=== PATIENT | female | born 1945 | race Caucasian/White ===

== ENCOUNTER → 2019-06-22 | Outpatient (CLI) | payer MEDICARE, OTHER ==
[~2019-06-22] MED LIST: IOPAMIDOL 370 MG/ML 200 ML INFUS..BTL INJ ONE; SODIUM CHLORIDE 0.9% 250ML 250 ML ONE; SODIUM CHLORIDE 0.9% 500ML 500 ML ONE; SODIUM CHLORIDE 0.9% 50ML 50 ML ONE
[2019-06-22 11:56] LABS: CREATININE, SERUM 1.31 mg/dL (0.57-1.11)
--- NOTE | 2019-06-22 15:13 | Diagnostic Imaging Report ---
EXAM: CT Chest, Abdomen and Pelvis WITH intravenous contrast INDICATION: COMPARISON: None. TECHNIQUE: The chest, abdomen and pelvis were scanned utilizing a multidetector helical scanner from the thoracic inlet to the pubic symphysis following administration of IV contrast. Coronal and sagittal reformations were obtained. IV CONTRAST: 100cc Isovue 370 ORAL CONTRAST: Water COMPLICATIONS: None RADIATION DOSE: Total DLP: 1087.9 mGy*cm Dose modulation, iterative reconstruction, and/or weight based adjustment of the mA/kV was utilized to reduce the radiation dose to as low as reasonably achievable. FINDINGS: LINES/ TUBES: None. LUNGS AND AIRWAYS: The central airways are patent. No focal consolidation or pulmonary edema. Scattered tree-in-bud nodules at the dependent right and left lower lobes. Scattered bilateral pulmonary nodules measure up to 6 mm, for example at the right lung apex (series 2 image 16). PLEURA: No pleural effusion. No pneumothorax. HEART AND MEDIASTINUM: Heterogeneous multinodular left thyroid gland. The largest nodule measures up to 3.5 cm at the lower pole. No supraclavicular, mediastinal, or hilar lymphadenopathy. The heart is not enlarged. No pericardial effusion. Scattered atherosclerotic calcifications involve the coronary arteries, thoracic aorta, and proximal great vessels. HEPATOBILIARY: Mild diffuse hepatic steatosis. No focal liver lesions. No biliary ductal dilation. Status post cholecystectomy. SPLEEN: No splenomegaly. PANCREAS: No focal masses or ductal dilatation. ADRENALS: No adrenal nodules. KIDNEYS/URETERS: No hydronephrosis, stones, or solid mass lesions. PELVIC ORGANS/BLADDER: Status post hysterectomy. PERITONEUM / RETROPERITONEUM: No free air or fluid. LYMPH NODES: No lymphadenopathy. VESSELS: Scattered atherosclerotic calcifications of the nonaneurysmal abdominal aorta and major branches. GI TRACT: Moderate sliding hiatal hernia with approximately half of the stomach above the diaphragm. Severe sigmoid diverticulosis. No CT evidence of diverticulitis. No abnormal bowel wall thickening. No bowel obstruction. BONES AND SOFT TISSUES: No acute osseous injury. No suspicious lytic or blastic lesions. Multilevel degenerative changes of the visualized spine. IMPRESSION: Scattered bilateral pulmonary nodules measuring up to 6mm. In this patient with history of malignancy, recommend continued imaging follow-up as per clinical protocol. Scattered bilateral lower lobe dependent tree in bud nodules may reflect a component of aspiration. No focal pneumonia. Heterogeneous multinodular left thyroid gland with the largest nodule measuring up to 3.5cm. Recommend dedicated thyroid ultrasound for further evaluation. Diffuse hepatic steatosis. Scattered atherosclerotic vascular calcifications, including of the coronary arteries. Severe sigmoid diverticulosis without CT evidence of diverticulitis. Moderate sliding hiatal hernia. Signed by: Roro Pemberton MD on 06/22/2019 3:10 PM
--- NOTE | 2019-06-22 19:36 | Diagnostic Imaging Report ---
Bone Scan, delayed phase INDICATION: 73F with history of breast cancer diagnosed in 2016. COMPARISON: CT [facility] 06/22/2019 REPORT: Approximately 3 hours following intravenous administration of 25 mCi of Tc-99m MDP, delayed total body images in the anterior and posterior projections and selected spot images were obtained. Round foci of increased tracer in the right 2nd-4th ribs anteriorly, consistent with posttraumatic change. Degenerative changes in L2-L4 on the right. Otherwise, distribution of tracer activity is unremarkable throughout the skeletal system. No abnormal accumulation of tracer is seen in the soft tissues or urinary tract. IMPRESSION: No scan evidence of metastatic bone disease. Signed by: Dr. Ashtyn Zeng M.D. on 06/22/2019 7:33 PM
== END ==
LOC: NM 10:56
PROVIDERS: ATTEND Internal Medicine Hematology & Oncology
DX: C50.412 Malignant neoplasm of upper-outer quadrant of left female breast (principal)
CPT/HCPCS: 36415; 71260; 74177; 78306; 82565; 82948; 84520; 96360; A9503; J7040; J7050; Q9967

== ENCOUNTER → 2019-07-19 | Outpatient (CLI) | payer MEDICARE, OTHER ==
--- NOTE | 2019-07-19 14:35 | Diagnostic Imaging Report ---
EXAM: US THYROID DATE: 07/19/2019 1:48 PM INDICATION: Thyroid nodule COMPARISON: CT from 06/22/2019 FINDINGS: The right thyroid lobe measures 4.0 x 1.9 x 1.8 cm. The assessment measures 2 mm in thickness. The left thyroid lobe measures 5.5 x 2.7 x 2.8 cm. The thyroid parenchyma is heterogeneous. There is a 1.0 x 0.9 x 0.9 cm isoechoic solid nodule identified within the superior pole the right thyroid lobe. There is a heterogeneous solid nodule identified within the mid right thyroid lobe measuring approximately 3.1 x 2.4 x 2.8 cm. Thyroid vascularity is within normal limits. IMPRESSION: Heterogeneous multinodular thyroid as detailed above. The dominant nodule within left thyroid lobe meets criteria for fine needle aspiration based on size. Signed by: Dr. Ashkan Singh MD on 07/19/2019 2:32 PM
== END ==
LOC: US 13:40
PROVIDERS: ATTEND Internal Medicine Hematology & Oncology
DX: E04.1 Nontoxic single thyroid nodule (principal)
CPT/HCPCS: 76536

== ENCOUNTER 2022-09-21 17:35 | Inpatient (IN) | payer MEDICARE, OTHER ==
[~2022-09-21] VITALS: Ht 177.8 cm; Wt 90.5 kg
[~2022-09-21 17:35] MED LIST changes: +BREO ELLIPTA 21 EACH INH; +CEPHALEXIN500 MG PO; +CLOPIDOGREL75 MG PO; +ESCITALOPRAM OX20 MG PO; +GLYBURIDE MICRON3 MG PO; -IOPAMIDOL 370 MG/ML 200 ML INFUS..BTL INJ ONE; +KEFLEX125 MG/5 M PO; +LOSARTAN POTAS100 MG PO; +METOPROLOL TART50 MG PO; +PANTOPRAZOLE SO40 MG PO; +ROSUVASTATIN CAL5 MG PO; -SODIUM CHLORIDE 0.9% 250ML 250 ML ONE; -SODIUM CHLORIDE 0.9% 500ML 500 ML ONE; -SODIUM CHLORIDE 0.9% 50ML 50 ML ONE
[2022-09-21 18:30] LABS: BASOPHILS % 0.3 % (0.0-1.0); EOSINOPHILS # (AUTO) 0.1 (0.0-0.4); EOSINOPHILS % 0.9 % (0.0-6.0); HEMATOCRIT 41.8 % (34.2-44.1); HEMOGLOBIN 13.8 g/dL (12.0-16.0); LYMPHOCYTES # (AUTO) 1.6 (1.0-3.2); LYMPHOCYTES % 11.1 % (18.0-39.1); MEAN CORPUSCULAR HEMOGLOBIN 30.5 pg (28-32); MEAN CORPUSCULAR VOLUME 92.5 fL (81-99); MONOCYTES # (AUTO) 0.8 (0.2-0.8); MONOCYTES % 5.5 % (4.4-11.3); NEUTROPHILS # (AUTO) 11.7 (2.1-6.9); NEUTROPHILS % 81.3 % (38.7-80.0); PLATELET COUNT 295 x10e3/uL (140-360); RED BLOOD COUNT 4.52 x10e6/uL (3.6-5.1); RED CELL DISTRIBUTION WIDTH 13.5 % (11.7-14.4)
[2022-09-21] MEDS ORDERED: SODIUM CHLORIDE 0.9% 1000ML 1,000 ML IV SCH (18:30)
[2022-09-21 18:33] LABS: INR 0.95; PROTHROMBIN TIME 12.9 seconds (11.9-14.5)
[2022-09-21 18:34] LABS: PARTIAL THROMBOPLASTIN TIME 25.4 seconds (23.8-35.5)
[2022-09-21 18:42] LABS: ALBUMIN 3.4 g/dL (3.5-5.0); ALBUMIN/GLOBULIN RATIO 0.9 (0.8-2.0); ANION GAP 17.6 mmol/L (8-16); CALCIUM 9.3 mg/dL (8.4-10.2); CREATININE, SERUM 0.85 mg/dL (0.57-1.11); POTASSIUM 3.6 mmol/L (3.5-5.1)
[2022-09-21 18:47] LABS: CLARITY,URINE SL CLOUDY (CLEAR); COLOR,URINE YELLOW (YELLOW); KETONES,URINE >=160 (NEGATIVE); LEUKOCYTE ESTERASE ,URINE SMALL (NEGATIVE); NITRITE,URINE NEGATIVE (NEGATIVE); PROTEIN,URINE DIPSTICK 1+ (NEGATIVE)
[2022-09-21 18:48] LABS: URINE UROBILINOGEN >=8 mg/dL (0.2 - 1)
[2022-09-21 18:52] LABS: B-TYPE NATRIURETIC PEPTIDE2 80.2 pg/mL (0-100)
[2022-09-21 18:57] LABS: WBC,URINE (MAN) 21-50 /HPF (0-5)
[2022-09-21 18:58] LABS: BACTERIA,URINE MODERATE /HPF; EPITHELIAL CELLS,URINE MANY /LPF
[2022-09-21] MEDS ORDERED: IOPAMIDOL 370 MG/ML 100 ML INFUS..BTL INJ ONE (19:05)
[2022-09-21] MEDS ORDERED: AMIODARONE HCL 150 MG/100 ML BAG IV ONE (22:30)
[2022-09-21] MEDS ORDERED: AMIODARONE HCL 100 ML IV ONE (22:43)
[2022-09-21] MEDS: AMIODARONE HCL 200 MG TAB PO SCH (22:47)
[2022-09-21] MEDS ORDERED: DEXTROSE 50% SYRINGE 50 ML IV PRN (23:00)
[2022-09-21] MEDS ORDERED: ONDANSETRON HCL INJ 2MG/ML 2ML 2 MG/ML VIAL IV PRN (23:00)
[2022-09-22] VITALS (8 sets, daily range): BP systolic 133–150; BP diastolic 56–92
[2022-09-22] MEDS ORDERED: BENZONATATE100 MG PO (00:48)
[2022-09-22] MEDS ORDERED: CLOPIDOGREL75 MG PO (00:48)
[2022-09-22] MEDS ORDERED: ACETAMINOPHEN 325 MG TAB PO PRN (03:00)
[2022-09-22 04:51] LABS: CREATINE KINASE MB 1.2 ng/mL (0-5.0)
[2022-09-22] MEDS: INSULIN REGULAR, HUMAN 100 UNIT/1 ML SQ SCH ×4 (07:30→21:00)
[2022-09-22] MEDS ORDERED: GUAIFENESIN/CODEINE 5 ML LIQD PO PRN (08:15)
[2022-09-22] MEDS ORDERED: ZOLPIDEM TARTRATE 5 MG TAB PO PRN (08:15)
[2022-09-22] MEDS ORDERED: ALBUTEROL SULFATE HFA 8GM INHALATION AEROSOL INH PRN (08:15)
[2022-09-22] MEDS: PANTOPRAZOLE SOD 40 MG TABEC PO SCH (08:49)
[2022-09-22] MEDS: AMIODARONE HCL 200 MG TAB PO SCH ×3 (08:50→21:51)
[2022-09-22 08:53] LABS: BASOPHILS % 0.5 % (0.0-1.0); EOSINOPHILS # (AUTO) 0.1 (0.0-0.4); EOSINOPHILS % 1.3 % (0.0-6.0); HEMATOCRIT 38.1 % (34.2-44.1); HEMOGLOBIN 11.6 g/dL (12.0-16.0); LYMPHOCYTES # (AUTO) 1.1 (1.0-3.2); LYMPHOCYTES % 12.7 % (18.0-39.1); MEAN CORPUSCULAR HEMOGLOBIN 29.9 pg (28-32); MEAN CORPUSCULAR HGB CONC 30.4 g/dL (31-35); MEAN CORPUSCULAR VOLUME 98.2 fL (81-99); MONOCYTES # (AUTO) 0.6 (0.2-0.8); MONOCYTES % 7.1 % (4.4-11.3); NEUTROPHILS # (AUTO) 6.8 (2.1-6.9); NEUTROPHILS % 77.9 % (38.7-80.0); PLATELET COUNT 239 x10e3/uL (140-360); RED BLOOD COUNT 3.88 x10e6/uL (3.6-5.1); RED CELL DISTRIBUTION WIDTH 13.3 % (11.7-14.4)
[2022-09-22] MEDS ORDERED: SODIUM CHLORIDE 0.9% 250ML 250 ML ONE (09:09)
[2022-09-22 09:27] LABS: ALBUMIN 2.9 g/dL (3.5-5.0); ANION GAP 11.3 mmol/L (8-16); CALCIUM 8.6 mg/dL (8.4-10.2); CREATININE, SERUM 0.77 mg/dL (0.57-1.11); POTASSIUM 3.3 mmol/L (3.5-5.1)
[2022-09-22 09:34] LABS: CREATINE KINASE MB 1.3 ng/mL (0-5.0)
[2022-09-22 11:00] LABS: MAGNESIUM 1.3 MG/DL (1.3-2.1); PHOSPHORUS 2.9 MG/DL (2.3-4.7)
[2022-09-22] MEDS ORDERED: APIXABAN 5 MG TABLET PO SCH (12:00)
[2022-09-22] MEDS ORDERED: POLYETHYLENE GLYCOL 3350 17 GM PACK PO PRN (14:45)
[2022-09-22] MEDS ORDERED: METOPROLOL TARTRATE INJ 1 MG/ML VIAL IV PRN (14:45)
[2022-09-22] MEDS ORDERED: MAGNESIUM SULFATE 2GM/50ML 50 ML IV ONE ×2 (15:00→17:30)
[2022-09-22] MEDS: DOCUSATE SODIUM 100 MG CAP PO SCH (16:33)
[2022-09-22] MEDS: METOPROLOL TARTRATE 25 MG TAB PO SCH (16:33)
[2022-09-22 18:20] LABS: CREATINE KINASE MB 1.5 ng/mL (0-5.0)
[2022-09-22] MEDS ORDERED: METOCLOPRAMIDE HCL 10 MG/2ML VIAL IV ONE (20:00)
[2022-09-23] VITALS (7 sets, daily range): BP systolic 122–141; BP diastolic 59–79
[2022-09-23] MEDS: METOCLOPRAMIDE HCL 10 MG/2ML VIAL IV SCH ×5 (00:07→22:54)
[2022-09-23] MEDS ORDERED: GUAIFENESIN 200 MG/10 ML UDC PO PRN (03:00)
[2022-09-23 03:09] LABS: FERRITIN 68.68 ng/mL (4.63-204.00)
[2022-09-23 06:09] LABS: BASOPHILS # (AUTO) 0.1 (0.0-0.1); BASOPHILS % 0.6 % (0.0-1.0); EOSINOPHILS # (AUTO) 0.2 (0.0-0.4); EOSINOPHILS % 2.5 % (0.0-6.0); HEMATOCRIT 36.8 % (34.2-44.1); LYMPHOCYTES # (AUTO) 1.1 (1.0-3.2); LYMPHOCYTES % 12.2 % (18.0-39.1); MEAN CORPUSCULAR HEMOGLOBIN 30.1 pg (28-32); MEAN CORPUSCULAR HGB CONC 32.6 g/dL (31-35); MEAN CORPUSCULAR VOLUME 92.2 fL (81-99); MONOCYTES # (AUTO) 0.8 (0.2-0.8); MONOCYTES % 8.8 % (4.4-11.3); NEUTROPHILS # (AUTO) 6.6 (2.1-6.9); NEUTROPHILS % 75.1 % (38.7-80.0); PLATELET COUNT 248 x10e3/uL (140-360); RED BLOOD COUNT 3.99 x10e6/uL (3.6-5.1); RED CELL DISTRIBUTION WIDTH 13.4 % (11.7-14.4)
[2022-09-23 06:25] LABS: ALBUMIN 2.9 g/dL (3.5-5.0); ALBUMIN/GLOBULIN RATIO 0.9 (0.8-2.0); ANION GAP 11.4 mmol/L (8-16); CALCIUM 8.8 mg/dL (8.4-10.2); CHOL/HDL RATIO 2.5 (3.0-3.6); CREATININE, SERUM 0.76 mg/dL (0.57-1.11); MAGNESIUM 2.3 MG/DL (1.3-2.1); PHOSPHORUS 2.4 MG/DL (2.3-4.7); POTASSIUM 3.4 mmol/L (3.5-5.1)
[2022-09-23 06:46] LABS: THYROID STIMULATING HORMONE 1.658 uIU/mL (0.350-4.940)
[2022-09-23] MEDS: INSULIN REGULAR, HUMAN 100 UNIT/1 ML SQ SCH ×4 (07:30→21:00)
[2022-09-23] MEDS: METOPROLOL TARTRATE 25 MG TAB PO SCH ×2 (08:53→16:24)
[2022-09-23] MEDS: MULTIVITAMINS/MINERALS TAB PO SCH (08:53)
[2022-09-23] MEDS: DOCUSATE SODIUM 100 MG CAP PO SCH ×2 (08:53→16:24)
[2022-09-23] MEDS: PANTOPRAZOLE SOD 40 MG TABEC PO SCH (08:53)
[2022-09-23] MEDS: AMIODARONE HCL 200 MG TAB PO SCH ×2 (08:58→22:54)
[2022-09-23] MEDS ORDERED: LEVALBUTEROL HCL SOLN NEBU 1.25 MG/3 ML NEB INH PRN (10:00)
[2022-09-23] MEDS ORDERED: BENZONATATE 100 MG CAP PO PRN (10:00)
[2022-09-23] MEDS ORDERED: POTASSIUM CHLORIDE 10MEQ EA PO ONE (11:00)
[2022-09-23] MEDS: LEVALBUTEROL HCL SOLN NEBU 1.25 MG/3 ML NEB INH SCH ×2 (14:00→19:25)
[2022-09-23] MEDS: IPRATROPIUM BROMIDE 0.02% 2.5 ML NEB NEB SCH ×2 (14:00→19:25)
[2022-09-23] MEDS: BENZONATATE 100 MG CAP PO SCH ×2 (16:23→22:54)
[2022-09-24] VITALS (8 sets, daily range): BP systolic 117–150; BP diastolic 67–76
[2022-09-24] MEDS: IPRATROPIUM BROMIDE 0.02% 2.5 ML NEB NEB SCH ×4 (01:00→20:15)
[2022-09-24] MEDS: LEVALBUTEROL HCL SOLN NEBU 1.25 MG/3 ML NEB INH SCH ×4 (01:00→20:15)
[2022-09-24 05:54] LABS: BASOPHILS % 0.5 % (0.0-1.0); EOSINOPHILS # (AUTO) 0.2 (0.0-0.4); EOSINOPHILS % 4.1 % (0.0-6.0); HEMOGLOBIN 11.5 g/dL (12.0-16.0); LYMPHOCYTES # (AUTO) 1.2 (1.0-3.2); LYMPHOCYTES % 21.2 % (18.0-39.1); MEAN CORPUSCULAR HEMOGLOBIN 29.8 pg (28-32); MEAN CORPUSCULAR HGB CONC 30.3 g/dL (31-35); MONOCYTES # (AUTO) 0.7 (0.2-0.8); MONOCYTES % 11.7 % (4.4-11.3); NEUTROPHILS # (AUTO) 3.5 (2.1-6.9); NEUTROPHILS % 61.8 % (38.7-80.0); PLATELET COUNT 238 x10e3/uL (140-360); RED BLOOD COUNT 3.86 x10e6/uL (3.6-5.1); RED CELL DISTRIBUTION WIDTH 13.2 % (11.7-14.4)
[2022-09-24 06:23] LABS: MEAN CORPUSCULAR VOLUME 98.4 fL (81-99)
[2022-09-24 06:34] LABS: ANION GAP 11.5 mmol/L (8-16); CALCIUM 8.6 mg/dL (8.4-10.2); CREATININE, SERUM 0.77 mg/dL (0.57-1.11); POTASSIUM 3.5 mmol/L (3.5-5.1)
[2022-09-24] MEDS: INSULIN REGULAR, HUMAN 100 UNIT/1 ML SQ SCH ×4 (07:30→21:00)
[2022-09-24] MEDS: DOCUSATE SODIUM 100 MG CAP PO SCH ×2 (09:00→17:00)
[2022-09-24] MEDS: BENZONATATE 100 MG CAP PO SCH ×3 (09:31→22:24)
[2022-09-24] MEDS: AMIODARONE HCL 200 MG TAB PO SCH ×2 (09:31→22:24)
[2022-09-24] MEDS: METOPROLOL TARTRATE 25 MG TAB PO SCH ×2 (09:32→17:57)
[2022-09-24] MEDS: MULTIVITAMINS/MINERALS TAB PO SCH (09:32)
[2022-09-24] MEDS: METOCLOPRAMIDE HCL 10 MG/2ML VIAL IV SCH ×4 (09:32→22:24)
[2022-09-24] MEDS: PANTOPRAZOLE SOD 40 MG TABEC PO SCH (09:32)
[2022-09-24] MEDS ORDERED: PROPOFOL IV EMULSION 10 MG/ML 20 ML VIAL ONE (12:34)
[2022-09-24] MEDS ORDERED: FENTANYL CITRATE/PF 100MCG/2 ML INJ ONE (12:55)
[2022-09-24] MEDS: CHLORDIAZEPOXIDE/CLIDINIUM 1 CAP PO SCH (22:24)
[2022-09-25] MEDS: LEVALBUTEROL HCL SOLN NEBU 1.25 MG/3 ML NEB INH SCH (01:00)
[2022-09-25] MEDS: IPRATROPIUM BROMIDE 0.02% 2.5 ML NEB NEB SCH (01:00)
[2022-09-25 01:21] VITALS: BP 134/71
[2022-09-25 01:58] VITALS: BP 129/82
[2022-09-25 02:00] VITALS: BP 129/82
[2022-09-25 06:01] VITALS: BP 119/75
[2022-09-25] MEDS: INSULIN REGULAR, HUMAN 100 UNIT/1 ML SQ SCH (07:30)
[2022-09-25 08:20] VITALS: BP 148/95
[2022-09-25 08:29] VITALS: BP 148/95
[2022-09-25] MEDS: DOCUSATE SODIUM 100 MG CAP PO SCH (09:00)
[2022-09-25] MEDS: BENZONATATE 100 MG CAP PO SCH (09:12)
[2022-09-25] MEDS: CHLORDIAZEPOXIDE/CLIDINIUM 1 CAP PO SCH (09:12)
[2022-09-25] MEDS: AMIODARONE HCL 200 MG TAB PO SCH (09:12)
[2022-09-25] MEDS: METOCLOPRAMIDE HCL 10 MG/2ML VIAL IV SCH (09:12)
[2022-09-25] MEDS: PANTOPRAZOLE SOD 40 MG TABEC PO SCH (09:12)
[2022-09-25] MEDS: MULTIVITAMINS/MINERALS TAB PO SCH (09:12)
[2022-09-25] MEDS: METOPROLOL TARTRATE 25 MG TAB PO SCH (09:13)
[2022-09-25] MEDS ORDERED: ONDANSETRON HCL 4 MG ORAL DISINTEGRATING TAB PO PRN (10:30)
== END 2022-09-25 12:04 | disposition home or self-care (01) | DRG 391 ==
LOC: ER 17:43 → ERHOLD 23:04 → MED/SURG2 09-22 00:07
PROVIDERS: ADMIT Internal Medicine; ATTEND Internal Medicine
PROC: 0DD68ZX Extraction of Stomach, Via Natural or Artificial Opening Endoscopic, Diagnostic (ICD-10-PCS; 2022-09-24)
PROC: 0D748ZZ Dilation of Esophagogastric Junction, Via Natural or Artificial Opening Endoscopic (ICD-10-PCS; principal; 2022-09-24 16:41)
DX: K22.2 Esophageal obstruction (principal); U07.1 COVID-19; J44.1 Chronic obstructive pulmonary disease with (acute) exacerbation; R04.2 Hemoptysis; N39.0 Urinary tract infection, site not specified; K92.0 Hematemesis; K21.00 Gastro-esophageal reflux disease with esophagitis, without bleeding; I10 Essential (primary) hypertension; E11.9 Type 2 diabetes mellitus without complications; R53.81 Other malaise; E87.6 Hypokalemia; E88.09 Other disorders of plasma-protein metabolism, not elsewhere classified; K44.9 Diaphragmatic hernia without obstruction or gangrene; E83.42 Hypomagnesemia; K29.70 Gastritis, unspecified, without bleeding; I48.0 Paroxysmal atrial fibrillation; D53.9 Nutritional anemia, unspecified; E04.9 Nontoxic goiter, unspecified; E78.5 Hyperlipidemia, unspecified; K31.7 Polyp of stomach and duodenum; E66.9 Obesity, unspecified; Z79.02 Long term (current) use of antithrombotics/antiplatelets; Z79.899 Other long term (current) drug therapy; Z79.84 Long term (current) use of oral hypoglycemic drugs; Z85.3 Personal history of malignant neoplasm of breast; Z90.12 Acquired absence of left breast and nipple; Z90.49 Acquired absence of other specified parts of digestive tract; Z90.710 Acquired absence of both cervix and uterus; Z87.891 Personal history of nicotine dependence; Z88.8 Allergy status to other drugs, medicaments and biological substances; Z86.73 Personal history of transient ischemic attack (TIA), and cerebral infarction without residual deficits; Z82.49 Family history of ischemic heart disease and other diseases of the circulatory system; Z83.6 Family history of other diseases of the respiratory system; Z68.28 Body mass index [BMI] 28.0-28.9, adult; Z87.11 Personal history of peptic ulcer disease
CPT/HCPCS: 36415; 43450; 71045; 71260; 76536; 80048; 80053; 80061; 81001; 82550; 82553; 82607; 82728; 82746; 82948; 83036; 83540; 83605; 83735; 83880; 84100; 84443; 84466; 84484; 85025; 85045; 85610; 85730; 87040; 87086; 87186; 88305; 88342; 93005; 94640; 94799; 96361; 99252; 99285; J0456; J0696; J1817; J2765; J3010; J3475; J7030; J7050; Q9967

== ENCOUNTER 2023-10-20 18:57 | Observation (INO) | payer MEDICARE, OTHER ==
[~2023-10-20] VITALS: Ht 177.8 cm; Wt 90.3 kg
[~2023-10-20 18:57] MED LIST changes: +BENZONATATE100 MG PO; +PYRIDIUM100 MG PO
[2023-10-20 19:46] LABS: BASOPHILS % 0.4 % (0.0-1.0); EOSINOPHILS # (AUTO) 0.3 (0.0-0.4); EOSINOPHILS % 3.4 % (0.0-6.0); HEMATOCRIT 41.9 % (34.2-44.1); HEMOGLOBIN 12.9 g/dL (12.0-16.0); LYMPHOCYTES # (AUTO) 1.5 (1.0-3.2); LYMPHOCYTES % 16.5 % (18.0-39.1); MEAN CORPUSCULAR HEMOGLOBIN 29.9 pg (28-32); MEAN CORPUSCULAR HGB CONC 30.8 g/dL (31-35); MONOCYTES # (AUTO) 0.5 (0.2-0.8); MONOCYTES % 5.5 % (4.4-11.3); NEUTROPHILS # (AUTO) 6.6 (2.1-6.9); PLATELET COUNT 258 x10e3/uL (140-360); RED BLOOD COUNT 4.32 x10e6/uL (3.6-5.1); RED CELL DISTRIBUTION WIDTH 13.9 % (11.7-14.4); WHITE BLOOD COUNT 8.95 x10e3/uL (4.8-10.8)
[2023-10-20 20:07] LABS: ALBUMIN 3.5 g/dL (3.5-5.0); ALKALINE PHOSPHATASE 61 IU/L (40-150); ANION GAP 13.9 mmol/L (8-16); BILIRUBIN,TOTAL 0.8 mg/dL (0.2-1.2); BLOOD UREA NITROGEN 15 mg/dL (7-26); BUN/CREATININE RATIO 11 (6-25); CALCIUM 9.7 mg/dL (8.4-10.2); CARBON DIOXIDE 23 mmol/L (22-29); CHLORIDE 103 mmol/L (98-107); CREATININE, SERUM 1.34 mg/dL (0.57-1.11); EST GLOMERULAR FILTRATION RATE 41 ML/MIN (>=60); POTASSIUM 3.9 mmol/L (3.5-5.1); SODIUM 136 mmol/L (136-145); TOTAL PROTEIN 7.1 g/dL (6.5-8.1)
[2023-10-20 20:15] LABS: ALANINE AMINOTRANSFERASE < 6 IU/L (0-55); GLUCOSE 54 mg/dL (74-118)
[2023-10-20] MEDS: SODIUM CHLORIDE 0.9% 1000ML 1,000 ML IV STA ×2 (20:27→20:28)
[2023-10-20] MEDS: DEXTROSE 50% SYRINGE 50 ML IV STA (20:28)
[2023-10-20] MEDS ORDERED: Morphine 4mg INJECTION 4 MG/ML INJ IV PRN (20:30)
[2023-10-20] MEDS ORDERED: ONDANSETRON HCL INJ 2MG/ML 2ML 2 MG/ML VIAL IV PRN (20:30)
[2023-10-20] MEDS ORDERED: CLONIDINE HCL 0.1 MG TAB PO PRN (21:00)
[2023-10-20 21:13] LABS: CREATINE KINASE 39 IU/L (29-168)
[2023-10-20] MEDS ORDERED: DEXTROSE 50% SYRINGE 50 ML IV PRN (21:15)
[2023-10-20 21:33] LABS: TROPONIN I < 0.001 ng/mL (0-0.300)
[2023-10-20 22:50] VITALS: BP 145/80; PULSE 88; RESP 18; TEMP 98.2; O2SAT 98
[2023-10-20 22:55] VITALS: PULSE 88; RESP 18; O2SAT 98
[2023-10-20 22:58] VITALS: BP 145/80; PULSE 88; RESP 18; TEMP 98.2; O2SAT 98
[2023-10-20 23:00] VITALS: BP 145/80; PULSE 88; RESP 18; TEMP 98.2; O2SAT 98
[2023-10-20] MEDS: DEXTROSE 5%/0.45% SOD CHL 1,000 ML IV ONE (23:34)
[2023-10-21] VITALS: BP 145/80; PULSE 88; RESP 18; TEMP 98.2; O2SAT 98
[2023-10-21 04:00] VITALS: BP 138/66; PULSE 73; RESP 18; TEMP 98.7; O2SAT 96
[2023-10-21 05:23] LABS: BASOPHILS # (AUTO) 0.1 (0.0-0.1); BASOPHILS % 0.6 % (0.0-1.0); EOSINOPHILS # (AUTO) 0.4 (0.0-0.4); EOSINOPHILS % 4.5 % (0.0-6.0); HEMATOCRIT 35.1 % (34.2-44.1); LYMPHOCYTES # (AUTO) 1.5 (1.0-3.2); LYMPHOCYTES % 18.1 % (18.0-39.1); MEAN CORPUSCULAR HEMOGLOBIN 29.9 pg (28-32); MEAN CORPUSCULAR HGB CONC 31.3 g/dL (31-35); MEAN CORPUSCULAR VOLUME 95.4 fL (81-99); MONOCYTES # (AUTO) 0.6 (0.2-0.8); MONOCYTES % 6.8 % (4.4-11.3); NEUTROPHILS # (AUTO) 5.8 (2.1-6.9); NEUTROPHILS % 69.6 % (38.7-80.0); PLATELET COUNT 220 x10e3/uL (140-360); RED BLOOD COUNT 3.68 x10e6/uL (3.6-5.1); RED CELL DISTRIBUTION WIDTH 14.2 % (11.7-14.4); WHITE BLOOD COUNT 8.27 x10e3/uL (4.8-10.8)
[2023-10-21] MEDS: ACETAMINOPHEN 325 MG TAB PO PRN (05:34)
[2023-10-21 05:47] LABS: ALBUMIN 2.9 g/dL (3.5-5.0); ALKALINE PHOSPHATASE 48 IU/L (40-150); ANION GAP 8.5 mmol/L (8-16); BILIRUBIN,TOTAL 0.5 mg/dL (0.2-1.2); BLOOD UREA NITROGEN 13 mg/dL (7-26); BUN/CREATININE RATIO 12 (6-25); CALCIUM 8.7 mg/dL (8.4-10.2); CARBON DIOXIDE 23 mmol/L (22-29); CHLORIDE 105 mmol/L (98-107); CREATININE, SERUM 1.13 mg/dL (0.57-1.11); EST GLOMERULAR FILTRATION RATE 50 ML/MIN (>=60); GLUCOSE 77 mg/dL (74-118); POTASSIUM 3.5 mmol/L (3.5-5.1); SODIUM 133 mmol/L (136-145); TOTAL PROTEIN 5.9 g/dL (6.5-8.1)
[2023-10-21 05:49] LABS: ALANINE AMINOTRANSFERASE < 6 IU/L (0-55)
[2023-10-21 06:06] LABS: CREATINE KINASE 38 IU/L (29-168)
[2023-10-21 06:17] LABS: TROPONIN I < 0.001 ng/mL (0-0.300)
[2023-10-21 06:20] LABS: BILIRUBIN,URINE NEGATIVE (NEGATIVE); CLARITY,URINE CLEAR (CLEAR); COLOR,URINE YELLOW (YELLOW); GLUCOSE, URINE NEGATIVE (NEGATIVE); KETONES,URINE NEGATIVE (NEGATIVE); LEUKOCYTE ESTERASE ,URINE SMALL (NEGATIVE); NITRITE,URINE NEGATIVE (NEGATIVE); PH,URINE 5.5 (5 - 7); PROTEIN,URINE DIPSTICK 1+ (NEGATIVE); URINE UROBILINOGEN 0.2 mg/dL (0.2 - 1)
[2023-10-21 06:32] LABS: WBC,URINE (MAN) >50 /HPF (0-5)
[2023-10-21 06:33] LABS: BACTERIA,URINE MANY /HPF; EPITHELIAL CELLS,URINE FEW /LPF; RBC,URINE 0-5 /HPF (0-5)
[2023-10-21 08:04] VITALS: BP 119/76; PULSE 71; RESP 18; TEMP 97.9; O2SAT 97
[2023-10-21 08:16] VITALS: PULSE 79; RESP 18; O2SAT 96
[2023-10-21 08:50] VITALS: BP 119/76; PULSE 79; RESP 18; TEMP 97.9; O2SAT 96
[2023-10-21] MEDS: VILANTEROL INH SCH (09:00)
[2023-10-21] MEDS ORDERED: PANTOPRAZOLE SOD 40 MG TABEC PO SCH (09:00)
[2023-10-21] MEDS: ESCITALOPRAM OXALATE 10 MG TAB PO SCH (09:00)
[2023-10-21] MEDS: FLUTICASONE INH SCH (09:00)
[2023-10-21] MEDS: METOPROLOL TARTRATE 50 MG TAB PO SCH (09:42)
[2023-10-21] MEDS: CRESTOR 10MG PO SCH (09:42)
[2023-10-21] MEDS: PANTOPRAZOLE SOD 40 MG TABEC PO SCH (09:45)
[2023-10-21 11:36] VITALS: BP 130/68; PULSE 71; RESP 18; TEMP 98; O2SAT 97
[2023-10-23] MEDS ORDERED: PLAVIX75 MG PO (00:46)
[2023-10-23] MEDS ORDERED: METOPROLOL SUCC50 MG PO (00:46)
[2023-10-23] MEDS ORDERED: ZYRTEC10 M3 PO (00:46)
== END 2023-10-21 12:47 | disposition home or self-care (01) ==
LOC: ER 19:07 → ERHOLD 20:27 → INTOOBSV 20:27 → MED/SURG 22:31
PROVIDERS: ADMIT Internal Medicine; ATTEND Internal Medicine
DX: R19.7 Diarrhea, unspecified (principal); E11.649 Type 2 diabetes mellitus with hypoglycemia without coma; I10 Essential (primary) hypertension; N17.9 Acute kidney failure, unspecified; E78.00 Pure hypercholesterolemia, unspecified; J44.9 Chronic obstructive pulmonary disease, unspecified; Z85.3 Personal history of malignant neoplasm of breast; K21.9 Gastro-esophageal reflux disease without esophagitis; K44.9 Diaphragmatic hernia without obstruction or gangrene; K57.90 Diverticulosis of intestine, part unspecified, without perforation or abscess without bleeding; Z88.8 Allergy status to other drugs, medicaments and biological substances; Z11.52 Encounter for screening for COVID-19; Z79.02 Long term (current) use of antithrombotics/antiplatelets; Z79.84 Long term (current) use of oral hypoglycemic drugs; Z79.899 Other long term (current) drug therapy; Z86.73 Personal history of transient ischemic attack (TIA), and cerebral infarction without residual deficits; Z87.891 Personal history of nicotine dependence
CPT/HCPCS: 36415 ×2; 74177; 80053 ×2; 81001; 82550 ×2; 82948 ×2; 83690; 84484 ×2; 85025 ×2; 87086; 87186; 93005; 94799 ×2; 99284; G0378 ×2; J7030; J7799; S0164; U0002

== ENCOUNTER 2024-02-08 14:20 | Inpatient (IN) | payer MEDICARE ==
[~2024-02-08] VITALS: Ht 175.3 cm; Wt 90.7 kg
[~2024-02-08 14:20] MED LIST changes: +CEFDINIR300 MG PO; +METOPROLOL SUCC50 MG PO; +PLAVIX75 MG PO; +ZYRTEC10 M3 PO
[2024-02-08 16:16] VITALS: TEMP 99
[2024-02-08 16:45] LABS: BASOPHILS % 0.3 % (0.0-1.0); EOSINOPHILS # (AUTO) 0.2 (0.0-0.4); EOSINOPHILS % 1.4 % (0.0-6.0); HEMATOCRIT 41.7 % (34.2-44.1); HEMOGLOBIN 13.7 g/dL (12.0-16.0); LYMPHOCYTES # (AUTO) 1.1 (1.0-3.2); LYMPHOCYTES % 9.5 % (18.0-39.1); MEAN CORPUSCULAR HEMOGLOBIN 30.4 pg (28-32); MEAN CORPUSCULAR HGB CONC 32.9 g/dL (31-35); MEAN CORPUSCULAR VOLUME 92.7 fL (81-99); MONOCYTES # (AUTO) 0.7 (0.2-0.8); MONOCYTES % 5.9 % (4.4-11.3); NEUTROPHILS # (AUTO) 9.4 (2.1-6.9); NEUTROPHILS % 82.8 % (38.7-80.0); PLATELET COUNT 224 x10e3/uL (140-360); RED CELL DISTRIBUTION WIDTH 13.4 % (11.7-14.4); WHITE BLOOD COUNT 11.31 x10e3/uL (4.8-10.8)
[2024-02-08 17:00] LABS: ALBUMIN/GLOBULIN RATIO 1.1 (0.8-2.0); ANION GAP 16.4 mmol/L (8-16); BILIRUBIN,TOTAL 0.9 mg/dL (0.2-1.2); CALCIUM 10.2 mg/dL (8.4-10.2); CREATININE, SERUM 1.27 mg/dL (0.57-1.11); MAGNESIUM 1.9 MG/DL (1.3-2.1); POTASSIUM 4.4 mmol/L (3.5-5.1); TOTAL PROTEIN 7.8 g/dL (6.5-8.1)
[2024-02-08] MEDS: ONDANSETRON HCL INJ 2MG/ML 2ML 2 MG/ML VIAL IV STA (17:03)
[2024-02-08 17:06] LABS: TROPONIN I 0.007 ng/mL (0-0.300)
[2024-02-08] MEDS: Morphine 4mg INJECTION 4 MG/ML INJ IV STA (17:07)
[2024-02-08 17:09] LABS: B-TYPE NATRIURETIC PEPTIDE2 77.6 pg/mL (0-100)
[2024-02-08] MEDS ORDERED: IOPAMIDOL 370 MG/ML 100 ML INFUS..BTL INJ ONE (17:09)
[2024-02-08 18:14] VITALS: RESP 16
[2024-02-08] MEDS: SODIUM CHLORIDE 0.9% 1000ML 1,000 ML IV ONE (18:22)
[2024-02-08 21:00] VITALS: PULSE 97
[2024-02-08] MEDS: SODIUM CHLORIDE 0.9% 1000ML 2,000 ML IV STA (21:00)
[2024-02-08 21:30] VITALS: BP 154/68; PULSE 87; RESP 18; TEMP 98.9; O2SAT 96
[2024-02-08] MEDS: SODIUM CHLORIDE 0.9% 1000ML 1,000 ML IV SCH (22:13)
[2024-02-08] MEDS ORDERED: LEXAPRO20 MG PO (22:23)
[2024-02-08 23:27] VITALS: BP 136/71; PULSE 84; RESP 18; TEMP 98.2; O2SAT 96
[2024-02-09] VITALS (8 sets, daily range): BP systolic 135–156; BP diastolic 63–86; PULSE 69–92; RESP 18; TEMP 97.7–99.2; O2SAT 94–98
[2024-02-09] MEDS: ONDANSETRON HCL INJ 2MG/ML 2ML 2 MG/ML VIAL IV PRN (01:59)
[2024-02-09 05:11] LABS: BASOPHILS % 0.4 % (0.0-1.0); EOSINOPHILS # (AUTO) 0.3 (0.0-0.4); EOSINOPHILS % 4.2 % (0.0-6.0); HEMATOCRIT 35.5 % (34.2-44.1); HEMOGLOBIN 11.3 g/dL (12.0-16.0); LYMPHOCYTES # (AUTO) 1.3 (1.0-3.2); LYMPHOCYTES % 17.9 % (18.0-39.1); MEAN CORPUSCULAR HEMOGLOBIN 30.6 pg (28-32); MEAN CORPUSCULAR HGB CONC 31.8 g/dL (31-35); MEAN CORPUSCULAR VOLUME 96.2 fL (81-99); MONOCYTES # (AUTO) 0.7 (0.2-0.8); MONOCYTES % 9.2 % (4.4-11.3); NEUTROPHILS # (AUTO) 4.9 (2.1-6.9); PLATELET COUNT 162 x10e3/uL (140-360); RED BLOOD COUNT 3.69 x10e6/uL (3.6-5.1); RED CELL DISTRIBUTION WIDTH 13.7 % (11.7-14.4); WHITE BLOOD COUNT 7.21 x10e3/uL (4.8-10.8)
[2024-02-09] MEDS: Morphine 4mg INJECTION 4 MG/ML INJ IV PRN (05:15)
[2024-02-09 05:46] LABS: ALBUMIN 3.2 g/dL (3.5-5.0); ALBUMIN/GLOBULIN RATIO 1.2 (0.8-2.0); BILIRUBIN,TOTAL 0.5 mg/dL (0.2-1.2); CALCIUM 8.6 mg/dL (8.4-10.2); CREATININE, SERUM 1.02 mg/dL (0.57-1.11); TOTAL PROTEIN 5.9 g/dL (6.5-8.1)
[2024-02-09] MEDS ORDERED: ALBUTEROL/IPRATROPIUM 3 ML NEB NEB PRN (10:00)
[2024-02-09] MEDS ORDERED: DEXTROSE 50% SYRINGE 50 ML IV PRN (10:00)
[2024-02-09] MEDS ORDERED: HYDROCODONE/APAP 7.5MG-325MG 1 EA TAB PO PRN (10:00)
[2024-02-09] MEDS: PANTOPRAZOLE SOD 40 MG TABEC PO SCH (11:01)
[2024-02-09] MEDS: METOPROLOL SUCCINATE 50 MG TAB XL PO SCH (11:01)
[2024-02-09] MEDS: VANCOMYCIN HCL 125 MG CAPSULE PO SCH (11:01)
[2024-02-09] MEDS: LORATADINE 10 MG TAB PO SCH (11:02)
[2024-02-09] MEDS: LOSARTAN POTASSIUM 100 MG TAB PO SCH (11:02)
[2024-02-09] MEDS: ESCITALOPRAM OXALATE 10 MG TAB PO SCH (11:02)
[2024-02-09] MEDS: CLOPIDOGREL BISULFATE 75 MG TAB PO SCH (11:02)
[2024-02-09] MEDS: INSULIN LISPRO 100 UNIT/1 ML 3ML VIAL SQ SCH (11:30)
[2024-02-09] MEDS: LORATADINE 10 MG TAB ONE (12:18)
[2024-02-09] MEDS: LOSARTAN POTASSIUM 100 MG TAB ONE (12:18)
[2024-02-09] MEDS: ESCITALOPRAM OXALATE 10 MG TAB ONE (12:18)
[2024-02-09] MEDS: CLOPIDOGREL BISULFATE 75 MG TAB ONE (12:18)
[2024-02-09] MEDS: PANTOPRAZOLE SOD 40 MG TABEC ONE (12:19)
[2024-02-09] MEDS: VANCOMYCIN HCL 125 MG CAPSULE PO ONE ×2 (12:19)
[2024-02-09] MEDS: METOPROLOL SUCCINATE 50 MG TAB XL ONE (12:19)
[2024-02-09] MEDS: ONDANSETRON HCL INJ 2MG/ML 2ML 2 MG/ML VIAL ONE (12:20)
[2024-02-09 12:25] LABS: BILIRUBIN,URINE NEGATIVE (NEGATIVE); CLARITY,URINE SL CLOUDY (CLEAR); COLOR,URINE YELLOW (YELLOW); GLUCOSE, URINE NEGATIVE (NEGATIVE); KETONES,URINE NEGATIVE (NEGATIVE); LEUKOCYTE ESTERASE ,URINE SMALL (NEGATIVE); NITRITE,URINE POSITIVE (NEGATIVE); PH,URINE 6 (5 - 7); PROTEIN,URINE DIPSTICK NEGATIVE (NEGATIVE); URINE UROBILINOGEN 1 mg/dL (0.2 - 1)
[2024-02-09 12:38] LABS: BACTERIA,URINE MANY /HPF; EPITHELIAL CELLS,URINE FEW /LPF; WBC,URINE (MAN) >50 /HPF (0-5)
[2024-02-09] MEDS: DICYCLOMINE HCL 20 MG TAB PO STA (23:42)
[2024-02-10] VITALS (10 sets, daily range): BP systolic 129–157; BP diastolic 62–108; PULSE 69–90; RESP 16–20; TEMP 98.4–99; O2SAT 95–98
[2024-02-10] MEDS ORDERED: VANCOMYCIN 250MG/5ML ORAL SOLN PO SCH ×2 (04:00)
[2024-02-10 05:52] LABS: BASOPHILS % 0.2 % (0.0-1.0); EOSINOPHILS # (AUTO) 0.2 (0.0-0.4); EOSINOPHILS % 2.4 % (0.0-6.0); HEMATOCRIT 37.5 % (34.2-44.1); HEMOGLOBIN 11.5 g/dL (12.0-16.0); LYMPHOCYTES # (AUTO) 1.2 (1.0-3.2); LYMPHOCYTES % 14.9 % (18.0-39.1); MEAN CORPUSCULAR HEMOGLOBIN 29.6 pg (28-32); MEAN CORPUSCULAR HGB CONC 30.7 g/dL (31-35); MEAN CORPUSCULAR VOLUME 96.6 fL (81-99); MONOCYTES # (AUTO) 0.5 (0.2-0.8); MONOCYTES % 6.7 % (4.4-11.3); NEUTROPHILS # (AUTO) 6.1 (2.1-6.9); NEUTROPHILS % 75.6 % (38.7-80.0); PLATELET COUNT 192 x10e3/uL (140-360); RED BLOOD COUNT 3.88 x10e6/uL (3.6-5.1); RED CELL DISTRIBUTION WIDTH 13.2 % (11.7-14.4); WHITE BLOOD COUNT 8.05 x10e3/uL (4.8-10.8)
[2024-02-10] MEDS: VANCOMYCIN HCL 125 MG CAPSULE PO SCH (06:13)
[2024-02-10 06:38] LABS: ANION GAP 12.9 mmol/L (8-16); CALCIUM 8.8 mg/dL (8.4-10.2); CREATININE, SERUM 0.95 mg/dL (0.57-1.11); POTASSIUM 3.9 mmol/L (3.5-5.1)
[2024-02-10] MEDS: DICYCLOMINE HCL 20 MG TAB PO SCH (09:28)
[2024-02-10 15:24] LABS: WBC,FECAL (FECAL LACTOFERRIN) POSITIVE (NEGATIVE)
[2024-02-10] MEDS: ACETAMINOPHEN 325 MG TAB PO PRN (21:22)
[2024-02-11] VITALS (10 sets, daily range): BP systolic 136–154; BP diastolic 75–80; PULSE 65–80; RESP 16–20; TEMP 98–98.9; O2SAT 95–100
[2024-02-12] VITALS (9 sets, daily range): BP systolic 149–158; BP diastolic 70–88; PULSE 55–79; RESP 16–20; TEMP 98–99.1; O2SAT 97–99
[2024-02-12] MEDS: CIPROFLOXACIN 500 MG TAB PO SCH (10:28)
[2024-02-12] MEDS: BISACODYL 5 MG TAB EC PO ONE ×3 (17:46→20:57)
[2024-02-12] MEDS: CITRATE OF MAGNESIA 300ML BOTTLE PO ONE (20:56)
[2024-02-13] VITALS (11 sets, daily range): BP systolic 138–162; BP diastolic 64–96; PULSE 68–82; RESP 17–20; TEMP 97.8–98.6; O2SAT 96–100
[2024-02-13] MEDS: CITRATE OF MAGNESIA 300ML BOTTLE PO ONE (05:55)
[2024-02-13] MEDS: CITRATE OF MAGNESIA 300ML BOTTLE PO STA (08:59)
[2024-02-13] MEDS ORDERED: LIDOCAINE HCL 2% LOCAL INJ 5 ML SDV VIAL INJ ONE (10:14)
[2024-02-13] MEDS ORDERED: PROPOFOL IV EMULSION 10 MG/ML 20 ML VIAL ONE (10:14)
[2024-02-13] MEDS: LACTATED RINGER'S 1,000 ML ONE (17:08)
[2024-02-14] VITALS (9 sets, daily range): BP systolic 132–154; BP diastolic 67–81; PULSE 65–79; RESP 18–20; TEMP 97.8–98.6; O2SAT 97–99
[2024-02-15] VITALS (7 sets, daily range): BP systolic 136–156; BP diastolic 70–81; PULSE 63–74; RESP 18; TEMP 97.8–98.6; O2SAT 96–99
[2024-02-15 05:49] LABS: BASOPHILS # (AUTO) 0.1 (0.0-0.1); BASOPHILS % 0.8 % (0.0-1.0); EOSINOPHILS # (AUTO) 0.4 (0.0-0.4); EOSINOPHILS % 4.6 % (0.0-6.0); HEMATOCRIT 32.7 % (34.2-44.1); HEMOGLOBIN 10.3 g/dL (12.0-16.0); LYMPHOCYTES % 25.7 % (18.0-39.1); MEAN CORPUSCULAR HEMOGLOBIN 29.9 pg (28-32); MEAN CORPUSCULAR HGB CONC 31.5 g/dL (31-35); MEAN CORPUSCULAR VOLUME 95.1 fL (81-99); MONOCYTES # (AUTO) 0.6 (0.2-0.8); NEUTROPHILS # (AUTO) 4.8 (2.1-6.9); NEUTROPHILS % 61.6 % (38.7-80.0); PLATELET COUNT 181 x10e3/uL (140-360); RED BLOOD COUNT 3.44 x10e6/uL (3.6-5.1); RED CELL DISTRIBUTION WIDTH 14.3 % (11.7-14.4); WHITE BLOOD COUNT 7.85 x10e3/uL (4.8-10.8)
[2024-02-15 06:13] LABS: ANION GAP 9.2 mmol/L (8-16); CALCIUM 8.3 mg/dL (8.4-10.2); CREATININE, SERUM 1.02 mg/dL (0.57-1.11)
[2024-02-15 06:14] LABS: POTASSIUM 3.2 mmol/L (3.5-5.1)
[2024-02-15] MEDS ORDERED: CIPRO250 MG PO (08:55)
[2024-02-15] MEDS ORDERED: VANCOCIN HCL250 MG PO (09:02)
[2024-02-15] MEDS ORDERED: PROBIOTIC & AC1 EACH PO (09:04)
[2024-02-15] MEDS ORDERED: ONDANSETRON ODT4 MG PO (09:05)
[2024-02-15] MEDS ORDERED: DICYCLOMINE HCL10 MG PO (09:06)
== END 2024-02-15 10:21 | disposition home or self-care (01) | DRG 372 ==
LOC: ER 16:34 → ERHOLD 19:50 → ACU 21:55 → MED/SURG2 22:08 → OBSVTOIN 02-10 07:53
PROVIDERS: ADMIT Internal Medicine; ATTEND Internal Medicine
PROC: 0DBM8ZZ Excision of Descending Colon, Via Natural or Artificial Opening Endoscopic (ICD-10-PCS; 2024-02-13)
PROC: 0DBN8ZZ Excision of Sigmoid Colon, Via Natural or Artificial Opening Endoscopic (ICD-10-PCS; 2024-02-13)
PROC: 0DBL8ZZ Excision of Transverse Colon, Via Natural or Artificial Opening Endoscopic (ICD-10-PCS; principal; 2024-02-13 13:27)
DX: A04.72 Enterocolitis due to Clostridium difficile, not specified as recurrent (principal); E44.0 Moderate protein-calorie malnutrition; N17.9 Acute kidney failure, unspecified; N39.0 Urinary tract infection, site not specified; K63.5 Polyp of colon; K64.8 Other hemorrhoids; E11.9 Type 2 diabetes mellitus without complications; J44.9 Chronic obstructive pulmonary disease, unspecified; E86.0 Dehydration; K21.9 Gastro-esophageal reflux disease without esophagitis; R00.0 Tachycardia, unspecified; E66.9 Obesity, unspecified; Z68.29 Body mass index [BMI] 29.0-29.9, adult; B96.5 Pseudomonas (aeruginosa) (mallei) (pseudomallei) as the cause of diseases classified elsewhere; B95.2 Enterococcus as the cause of diseases classified elsewhere; Z11.52 Encounter for screening for COVID-19; Z79.02 Long term (current) use of antithrombotics/antiplatelets; Z79.82 Long term (current) use of aspirin; Z79.51 Long term (current) use of inhaled steroids; Z85.3 Personal history of malignant neoplasm of breast; Z90.49 Acquired absence of other specified parts of digestive tract; Z90.710 Acquired absence of both cervix and uterus; Z90.12 Acquired absence of left breast and nipple; Z86.73 Personal history of transient ischemic attack (TIA), and cerebral infarction without residual deficits; Z88.8 Allergy status to other drugs, medicaments and biological substances; Z87.891 Personal history of nicotine dependence
CPT/HCPCS: 36415; 45378; 71045; 74177; 80048; 80053; 81001; 82550; 82948; 83605; 83630; 83735; 83880; 84484; 85025; 87040; 87045; 87086; 87177; 87186; 87324; 87449; 88305; 93005; 94799; 99284; G0378; J2001; J2270; J2405; J7030; Q9967; U0002

== ENCOUNTER 2024-11-11 19:15 | Inpatient (IN) | payer MEDICARE ==
[~2024-11-11] VITALS: Ht 172.7 cm; Wt 90.7 kg
[~2024-11-11 19:15] MED LIST changes: +CIPRO250 MG PO; +DICYCLOMINE HCL10 MG PO; +LEXAPRO20 MG PO; +ONDANSETRON ODT4 MG PO; +PROBIOTIC & AC1 EACH PO; +VANCOCIN HCL250 MG PO
[2024-11-11 19:41] VITALS: TEMP 99
[2024-11-11] MEDS: SODIUM CHLORIDE 0.9% 1000ML 1,000 ML IV STA (19:54)
[2024-11-11] MEDS: ACETAMINOPHEN 325 MG TAB PO STA (19:55)
[2024-11-11 19:57] LABS: BASOPHILS % 0.4 % (0.0-1.0); EOSINOPHILS # (AUTO) 0.2 (0.0-0.4); EOSINOPHILS % 4.4 % (0.0-6.0); HEMATOCRIT 40.4 % (34.2-44.1); HEMOGLOBIN 12.6 g/dL (12.0-16.0); LYMPHOCYTES # (AUTO) 0.8 (1.0-3.2); LYMPHOCYTES % 17.4 % (18.0-39.1); MEAN CORPUSCULAR HEMOGLOBIN 29.6 pg (28-32); MEAN CORPUSCULAR HGB CONC 31.2 g/dL (31-35); MEAN CORPUSCULAR VOLUME 94.8 fL (81-99); MONOCYTES # (AUTO) 0.4 (0.2-0.8); MONOCYTES % 8.6 % (4.4-11.3); NEUTROPHILS # (AUTO) 3.1 (2.1-6.9); NEUTROPHILS % 68.8 % (38.7-80.0); PLATELET COUNT 194 x10e3/uL (140-360); RED BLOOD COUNT 4.26 x10e6/uL (3.6-5.1); WHITE BLOOD COUNT 4.54 x10e3/uL (4.8-10.8)
[2024-11-11 20:24] LABS: ALBUMIN 3.6 g/dL (3.5-5.0); ANION GAP 14.8 mmol/L (8-16); BILIRUBIN,TOTAL 0.6 mg/dL (0.2-1.2); CALCIUM 9.8 mg/dL (8.4-10.2); CREATININE, SERUM 1.28 mg/dL (0.57-1.11); POTASSIUM 3.8 mmol/L (3.5-5.1); TOTAL PROTEIN 7.2 g/dL (6.5-8.1)
[2024-11-11 20:30] LABS: TROPONIN I 0.017 ng/mL (0-0.300)
[2024-11-11 21:00] VITALS: PULSE 75; RESP 24
[2024-11-11 21:06] LABS: CORONAVIRUS COVID-19 AG NEGATIVE (NEGATIVE); INFLUENZA A AG NEGATIVE (NEGATIVE); INFLUENZA B AG NEGATIVE (NEGATIVE)
[2024-11-11] MEDS ORDERED: SODIUM CHLORIDE FLUSH 10 ML SYR INJ PRN (21:15)
[2024-11-11 21:44] VITALS: PULSE 76; RESP 20; O2SAT 94
[2024-11-11] MEDS: ALBUTEROL/IPRATROPIUM 3 ML NEB NEB PRN (21:47)
[2024-11-11] MEDS: METHYLPREDNISOLONE SOD SUCC 40 MG/ML VIAL 1ML IV SCH (22:06)
[2024-11-11 22:30] VITALS: BP 147/88; PULSE 99; RESP 20; TEMP 99.3; O2SAT 99
[2024-11-12] VITALS (12 sets, daily range): BP systolic 99–167; BP diastolic 64–90; PULSE 72–113; RESP 18–20; TEMP 97.6–99.4; O2SAT 94–98
[2024-11-12] MEDS ORDERED: LIBRAX CAPSULE1 EACH PO (01:01)
[2024-11-12] MEDS ORDERED: CITALOPRAM10 MG/5 ML PO (01:01)
[2024-11-12] MEDS: ALBUTEROL/IPRATROPIUM 3 ML NEB NEB SCH ×2 (02:09→20:04)
[2024-11-12 07:32] LABS: BASOPHILS % 0.6 % (0.0-1.0); HEMATOCRIT 39.6 % (34.2-44.1); HEMOGLOBIN 12.3 g/dL (12.0-16.0); LYMPHOCYTES # (AUTO) 0.4 (1.0-3.2); LYMPHOCYTES % 12.8 % (18.0-39.1); MEAN CORPUSCULAR HEMOGLOBIN 29.7 pg (28-32); MEAN CORPUSCULAR HGB CONC 31.1 g/dL (31-35); MEAN CORPUSCULAR VOLUME 95.7 fL (81-99); MONOCYTES # (AUTO) 0.1 (0.2-0.8); MONOCYTES % 2.2 % (4.4-11.3); NEUTROPHILS # (AUTO) 2.6 (2.1-6.9); NEUTROPHILS % 83.4 % (38.7-80.0); PLATELET COUNT 185 x10e3/uL (140-360); RED BLOOD COUNT 4.14 x10e6/uL (3.6-5.1); RED CELL DISTRIBUTION WIDTH 14.9 % (11.7-14.4); WHITE BLOOD COUNT 3.13 x10e3/uL (4.8-10.8)
[2024-11-12] MEDS: SODIUM CHLORIDE 0.9% 250ML 250 ML ONE (08:01)
[2024-11-12 08:03] LABS: ALBUMIN 3.4 g/dL (3.5-5.0); ANION GAP 16.2 mmol/L (8-16); BILIRUBIN,TOTAL 0.6 mg/dL (0.2-1.2); CALCIUM 9.6 mg/dL (8.4-10.2); CREATININE, SERUM 1.39 mg/dL (0.57-1.11); POTASSIUM 4.2 mmol/L (3.5-5.1); TOTAL PROTEIN 6.7 g/dL (6.5-8.1)
[2024-11-12 08:39] LABS: TROPONIN I 0.012 ng/mL (0-0.300)
[2024-11-12] MEDS ORDERED: ONDANSETRON HCL 4 MG ORAL DISINTEGRATING TAB PO PRN (14:45)
[2024-11-12] MEDS ORDERED: ONDANSETRON HCL INJ 2MG/ML 2ML 2 MG/ML VIAL IV PRN (14:45)
[2024-11-12] MEDS ORDERED: MAALOX/LIDOCAINE/BENADRYL/NYST 30 ML BTL PO PRN (14:45)
[2024-11-12] MEDS: ACETAMINOPHEN 325 MG TAB PO PRN (15:01)
[2024-11-12] MEDS: DOXYCYCLINE HYCLATE TABLET 100 MG TAB PO SCH (17:20)
[2024-11-12] MEDS: ENOXAPARIN SOD INJ 40 MG/0.4 ML SYR SC SCH (17:20)
[2024-11-12] MEDS: BENZONATATE 100 MG CAP PO PRN (17:26)
[2024-11-12] MEDS: METOPROLOL SUCCINATE 50 MG TAB XL PO SCH (21:00)
[2024-11-12] MEDS: METHYLPREDNISOLONE SOD SUCC 40 MG/ML VIAL 1ML IV SCH (21:37)
[2024-11-12] MEDS: TEMAZEPAM 15 MG CAP PO SCH (21:38)
[2024-11-13] VITALS (11 sets, daily range): BP systolic 134–181; BP diastolic 67–99; PULSE 73–106; RESP 18–20; TEMP 97.6–99.1; O2SAT 94–100
[2024-11-13] MEDS: HYDRALAZINE HCL 20 MG/ML VIAL IV PRN (05:34)
[2024-11-13 06:40] LABS: BASOPHILS % 0.1 % (0.0-1.0); HEMATOCRIT 33.8 % (34.2-44.1); HEMOGLOBIN 10.7 g/dL (12.0-16.0); LYMPHOCYTES # (AUTO) 0.6 (1.0-3.2); LYMPHOCYTES % 7.7 % (18.0-39.1); MEAN CORPUSCULAR HEMOGLOBIN 29.7 pg (28-32); MEAN CORPUSCULAR HGB CONC 31.7 g/dL (31-35); MEAN CORPUSCULAR VOLUME 93.9 fL (81-99); MONOCYTES # (AUTO) 0.4 (0.2-0.8); MONOCYTES % 4.9 % (4.4-11.3); NEUTROPHILS # (AUTO) 6.2 (2.1-6.9); NEUTROPHILS % 86.6 % (38.7-80.0); PLATELET COUNT 182 x10e3/uL (140-360); RED CELL DISTRIBUTION WIDTH 15.3 % (11.7-14.4); WHITE BLOOD COUNT 7.11 x10e3/uL (4.8-10.8)
[2024-11-13 07:03] LABS: CALCIUM 9.1 mg/dL (8.4-10.2); CREATININE, SERUM 1.31 mg/dL (0.57-1.11)
[2024-11-13 07:36] LABS: TROPONIN I 2.185 ng/mL (0-0.300)
[2024-11-13] MEDS: CRESTOR 10MG PO SCH (09:12)
[2024-11-13] MEDS: CLOPIDOGREL BISULFATE 75 MG TAB PO SCH (09:13)
[2024-11-13] MEDS: ESCITALOPRAM OXALATE 10 MG TAB PO SCH (09:13)
[2024-11-13] MEDS: LOSARTAN POTASSIUM 100 MG TAB PO SCH (09:13)
[2024-11-13] MEDS: LORATADINE 10 MG TAB PO SCH (09:13)
[2024-11-13] MEDS ORDERED: PROTONIX20 MG PO (09:17)
[2024-11-13] MEDS ORDERED: BISACODYL 10 MG SUPP PR PRN (11:00)
[2024-11-13] MEDS: SENNA-S TABLET PO SCH (11:39)
[2024-11-14] VITALS (47 sets, daily range): BP systolic 96–172; BP diastolic 52–119; PULSE 68–175; RESP 16–39; TEMP 97.6–98.9; O2SAT 94–100
[2024-11-14] MEDS: PANTOPRAZOLE SOD 40 MG TABEC PO SCH (05:32)
[2024-11-14] MEDS: MAGNESIUM HYDROXIDE 30 ML UDC PO PRN (05:33)
[2024-11-14 06:45] LABS: TROPONIN I 0.82 ng/mL (0-0.300)
[2024-11-14] MEDS: GUAIFENESIN 600 MG TAB PO SCH (09:34)
[2024-11-14] MEDS: AMIODARONE HCL 150 MG/100 ML BAG IV ONE (10:28)
[2024-11-14] MEDS: AMIODARONE 900MG 500 ML IV SCH (10:29)
[2024-11-14] MEDS: METHYLPREDNISOLONE SOD SUCC 40 MG/ML VIAL 1ML IV SCH (11:12)
[2024-11-14] MEDS: MUPIROCIN 2% OINT 22 GM TUBE TOP SCH (11:13)
[2024-11-14] MEDS: FLUTICASONE PROPIONATE NASAL SPRAY NS SCH (12:03)
[2024-11-14] MEDS ORDERED: LEVALBUTEROL HCL SOLN NEBU 0.63 MG/3 ML NEB INH PRN (13:00)
[2024-11-15] VITALS (27 sets, daily range): BP systolic 119–159; BP diastolic 56–100; PULSE 63–95; RESP 20–35; TEMP 97.1–98.7; O2SAT 93–100
[2024-11-15] MEDS: ENOXAPARIN SOD INJ 60 MG/0.6 ML SYR SC STA (03:02)
[2024-11-15] MEDS: AMIODARONE HCL 200 MG TAB PO SCH (08:47)
[2024-11-15] MEDS: METHYLPREDNISOLONE SOD SUCC 40 MG/ML VIAL 1ML IV SCH (08:48)
[2024-11-15] MEDS ORDERED: ENOXAPARIN SODIUM INJ 100 MG/ML SYR SC SCH (09:00)
[2024-11-15] MEDS: APIXABAN 5 MG TABLET PO SCH (10:07)
[2024-11-15] MEDS: SODIUM CHLORIDE 0.9% 250ML 250 ML ONE (15:53)
[2024-11-15] MEDS: ALBUTEROL/IPRATROPIUM 3 ML NEB NEB PRN (18:58)
[2024-11-16] VITALS (10 sets, daily range): BP systolic 141–151; BP diastolic 64–81; PULSE 71–98; RESP 16–22; TEMP 97.8–98.5; O2SAT 95–98
[2024-11-16 08:08] LABS: BASOPHILS % 0.2 % (0.0-1.0); EOSINOPHILS # (AUTO) 0.1 (0.0-0.4); EOSINOPHILS % 0.5 % (0.0-6.0); HEMATOCRIT 36.4 % (34.2-44.1); HEMOGLOBIN 11.7 g/dL (12.0-16.0); LYMPHOCYTES # (AUTO) 2.5 (1.0-3.2); LYMPHOCYTES % 21.6 % (18.0-39.1); MEAN CORPUSCULAR HEMOGLOBIN 29.5 pg (28-32); MEAN CORPUSCULAR HGB CONC 32.1 g/dL (31-35); MEAN CORPUSCULAR VOLUME 91.7 fL (81-99); MONOCYTES # (AUTO) 0.6 (0.2-0.8); MONOCYTES % 5.4 % (4.4-11.3); NEUTROPHILS # (AUTO) 8.3 (2.1-6.9); NEUTROPHILS % 71.6 % (38.7-80.0); PLATELET COUNT 257 x10e3/uL (140-360); RED BLOOD COUNT 3.97 x10e6/uL (3.6-5.1); RED CELL DISTRIBUTION WIDTH 15.6 % (11.7-14.4); WHITE BLOOD COUNT 11.53 x10e3/uL (4.8-10.8)
[2024-11-16 08:23] LABS: ANION GAP 15.4 mmol/L (8-16); CALCIUM 9.2 mg/dL (8.4-10.2); CREATININE, SERUM 1.29 mg/dL (0.57-1.11)
[2024-11-16 08:29] LABS: POTASSIUM 3.4 mmol/L (3.5-5.1)
[2024-11-16] MEDS: ALBUTEROL/IPRATROPIUM 3 ML NEB NEB SCH (10:08)
[2024-11-17] VITALS (10 sets, daily range): BP systolic 119–154; BP diastolic 69–85; PULSE 74–92; RESP 16–18; TEMP 97.7–98.7; O2SAT 96–99
[2024-11-17] MEDS: AMIODARONE HCL 200 MG TAB PO SCH (09:30)
[2024-11-17] MEDS: PREDNISONE 10 MG TAB PO SCH (09:41)
[2024-11-18] VITALS (8 sets, daily range): BP systolic 138–154; BP diastolic 73–93; PULSE 86–98; RESP 18; TEMP 97.4–98.3; O2SAT 96–98
[2024-11-18] MEDS: GUAIFENESIN/CODEINE 5 ML LIQD PO PRN (21:00)
[2024-11-19] VITALS (9 sets, daily range): BP systolic 134–157; BP diastolic 70–92; PULSE 71–93; RESP 17–20; TEMP 97.4–98.1; O2SAT 97–100
[2024-11-19] MEDS ORDERED: MUCINEX600 MG PO (18:24)
[2024-11-19] MEDS ORDERED: TESSALON PEARLS PO (18:26)
[2024-11-19] MEDS ORDERED: AMIODARONE HCL100 MG PO (18:28)
[2024-11-19] MEDS ORDERED: ELIQUIS5 MG PO (18:28)
[2024-11-19] MEDS ORDERED: DUONEB (18:29)
[2024-11-19] MEDS ORDERED: FLONASE ALLERG9.9 ML INH (18:30)
[2024-11-19] MEDS ORDERED: MEDRO DOSE PACK (18:31)
[2024-11-20 00:05] VITALS: BP 130/67; PULSE 71; RESP 16; TEMP 97.8; O2SAT 97
[2024-11-20 04:08] VITALS: BP 139/76; PULSE 71; RESP 17; TEMP 97.4; O2SAT 100
[2024-11-20 06:21] VITALS: PULSE 92; RESP 22; O2SAT 98
[2024-11-20 07:53] VITALS: BP 151/86; PULSE 87; RESP 19; TEMP 97.9; O2SAT 98
[2024-11-20 09:19] VITALS: BP 151/86
== END 2024-11-20 10:07 | disposition home or self-care (01) | DRG 871 ==
LOC: ER 19:19 → ERHOLD 21:17 → MED/SURG3 22:39 → ICU 11-14 10:31 → MED/SURG 11-15 11:49
PROVIDERS: ADMIT Internal Medicine; ATTEND Internal Medicine
DX: A41.9 Sepsis, unspecified organism (principal); I21.A1 Myocardial infarction type 2; J18.9 Pneumonia, unspecified organism; J96.01 Acute respiratory failure with hypoxia; J44.0 Chronic obstructive pulmonary disease with (acute) lower respiratory infection; E87.20 Acidosis, unspecified; I13.0 Hypertensive heart and chronic kidney disease with heart failure and stage 1 through stage 4 chronic kidney disease, or unspecified chronic kidney disease; I50.30 Unspecified diastolic (congestive) heart failure; J44.1 Chronic obstructive pulmonary disease with (acute) exacerbation; J43.9 Emphysema, unspecified; J30.9 Allergic rhinitis, unspecified; Z87.891 Personal history of nicotine dependence; Z99.81 Dependence on supplemental oxygen; E86.0 Dehydration; I48.0 Paroxysmal atrial fibrillation; I25.10 Atherosclerotic heart disease of native coronary artery without angina pectoris; I70.0 Atherosclerosis of aorta; E11.22 Type 2 diabetes mellitus with diabetic chronic kidney disease; N18.9 Chronic kidney disease, unspecified; Z79.84 Long term (current) use of oral hypoglycemic drugs; E78.5 Hyperlipidemia, unspecified; K44.9 Diaphragmatic hernia without obstruction or gangrene; M19.91 Primary osteoarthritis, unspecified site; K21.9 Gastro-esophageal reflux disease without esophagitis; K59.00 Constipation, unspecified; R53.81 Other malaise; Z11.52 Encounter for screening for COVID-19; Z20.89 Contact with and (suspected) exposure to other communicable diseases; Z86.73 Personal history of transient ischemic attack (TIA), and cerebral infarction without residual deficits; Z85.3 Personal history of malignant neoplasm of breast; Z90.12 Acquired absence of left breast and nipple; Z79.02 Long term (current) use of antithrombotics/antiplatelets; Z79.899 Other long term (current) drug therapy
CPT/HCPCS: 36415; 71045; 71250; 80048; 80053; 80061; 82550; 82948; 83036; 83605; 83690; 83880; 84484; 85025; 87040; 87086; 93005; 93306; 94640; 94799; 97139; 99252; 99284; J0360; J1650; J2470; J2543; J2919; J7030; J7050; J7512

== ENCOUNTER 2025-05-19 14:17 | Inpatient (IN) | payer MEDICARE ==
[~2025-05-19] VITALS: Ht 172.7 cm; Wt 90.7 kg
[~2025-05-19 14:17] MED LIST changes: +AMIODARONE HCL100 MG PO; +CITALOPRAM10 MG/5 ML PO; +DUONEB; +ELIQUIS5 MG PO; +FLONASE ALLERG9.9 ML INH; +LIBRAX CAPSULE1 EACH PO; +MEDRO DOSE PACK; +MUCINEX600 MG PO; +PROTONIX20 MG PO; +TESSALON PEARLS PO
[2025-05-19 17:41] LABS: BASOPHILS % 0.5 % (0.0-1.0); EOSINOPHILS % 0.5 % (0.0-6.0); LYMPHOCYTES % 15.6 % (18.0-39.1); MONOCYTES % 6.6 % (4.4-11.3); NEUTROPHILS % 76.6 % (38.7-80.0); RED CELL DISTRIBUTION WIDTH 14.3 % (11.7-14.4)
[2025-05-19] MEDS: SODIUM CHLORIDE 0.9% 1000ML 1,000 ML IV ONE (17:43)
[2025-05-19] MEDS: ONDANSETRON HCL INJ 2MG/ML 2ML 2 MG/ML VIAL IV STA ×2 (17:43→21:40)
[2025-05-19 18:06] LABS: EST GLOMERULAR FILTRATION RATE 65.0 ML/MIN (>=60)
[2025-05-19] MEDS ORDERED: IOPAMIDOL 370 MG/ML 100 ML INFUS..BTL INJ ONE (18:36)
[2025-05-19 19:10] VITALS: TEMP 98.4
[2025-05-19 19:25] LABS: LEUKOCYTE ESTERASE ,URINE NEGATIVE (NEGATIVE)
[2025-05-19 19:26] LABS: PROTEIN,URINE DIPSTICK NEGATIVE (NEGATIVE); URINE UROBILINOGEN 0.2 mg/dL (0.2 - 1)
[2025-05-19 19:30] LABS: EPITHELIAL CELLS,URINE RARE /LPF; WBC,URINE (MAN) 0-5 /HPF (0-5)
[2025-05-19] MEDS: ACETAMINOPHEN 325 MG TAB PO ONE (21:41)
[2025-05-19 21:45] VITALS: PULSE 81; RESP 20
[2025-05-19] MEDS ORDERED: SODIUM CHLORIDE FLUSH 10 ML SYR INJ PRN (23:00)
[2025-05-20] VITALS (10 sets, daily range): BP systolic 130–159; BP diastolic 45–88; PULSE 68–110; RESP 16–20; TEMP 97.9–99; O2SAT 93–100
[2025-05-20 06:42] LABS: BASOPHILS % 0.4 % (0.0-1.0); EOSINOPHILS % 1.5 % (0.0-6.0); LYMPHOCYTES % 14.8 % (18.0-39.1); MONOCYTES % 9.3 % (4.4-11.3); NEUTROPHILS % 73.1 % (38.7-80.0); RED CELL DISTRIBUTION WIDTH 14.4 % (11.7-14.4)
[2025-05-20 07:38] LABS: EST GLOMERULAR FILTRATION RATE 61.0 ML/MIN (>=60)
[2025-05-20] MEDS: ONDANSETRON HCL INJ 2MG/ML 2ML 2 MG/ML VIAL IV PRN (08:40)
[2025-05-20] MEDS ORDERED: ALBUTEROL/IPRATROPIUM 3 ML NEB NEB PRN (10:45)
[2025-05-20] MEDS ORDERED: ACETAMIN/BUTALBITAL/CAFFEINE TAB PO PRN (10:45)
[2025-05-20] MEDS ORDERED: CHLORDIAZEPOXIDE/CLIDINIUM 1 CAP PO PRN (10:45)
[2025-05-20] MEDS: CITALOPRAM HYDROBROMIDE 20 MG TAB PO SCH (12:43)
[2025-05-20] MEDS: ACETAMINOPHEN 325 MG TAB PO PRN (12:45)
[2025-05-20] MEDS: APIXABAN 5 MG TABLET PO SCH (12:45)
[2025-05-20] MEDS: LOSARTAN POTASSIUM 100 MG TAB PO SCH (12:46)
[2025-05-20] MEDS: LORATADINE 10 MG TAB PO SCH (12:46)
[2025-05-20] MEDS: ALBUTEROL/IPRATROPIUM 3 ML NEB NEB SCH (13:28)
[2025-05-20] MEDS: Rosuvastatin Calcium 5 MG PO SCH (21:00)
[2025-05-20] MEDS: METOPROLOL SUCCINATE 50 MG TAB XL PO SCH (23:07)
[2025-05-21] VITALS (8 sets, daily range): BP systolic 133–147; BP diastolic 51–81; PULSE 67–83; RESP 18–20; TEMP 98.8–99.5; O2SAT 95–97
[2025-05-21] MEDS: PANTOPRAZOLE SOD 40 MG TABEC PO SCH (09:36)
[2025-05-21] MEDS: VANCOMYCIN HCL 125 MG CAPSULE PO SCH (09:46)
[2025-05-22] VITALS (12 sets, daily range): BP systolic 134–160; BP diastolic 55–77; PULSE 60–73; RESP 16–19; TEMP 97.1–99.1; O2SAT 94–100
[2025-05-22 05:02] LABS: BASOPHILS % 0.6 % (0.0-1.0); EOSINOPHILS % 3.9 % (0.0-6.0); LYMPHOCYTES % 19.2 % (18.0-39.1); MONOCYTES % 7.8 % (4.4-11.3); NEUTROPHILS % 68.0 % (38.7-80.0); RED CELL DISTRIBUTION WIDTH 14.4 % (11.7-14.4)
[2025-05-22 05:26] LABS: EST GLOMERULAR FILTRATION RATE 57.0 ML/MIN (>=60)
[2025-05-23] VITALS (7 sets, daily range): BP systolic 130–143; BP diastolic 64–98; PULSE 61–71; RESP 17–19; TEMP 97.8–98.9; O2SAT 94–100
[2025-05-23] MEDS: HYDROCODONE/APAP 7.5MG-325MG 1 EA TAB PO PRN (04:46)
[2025-05-24] VITALS (9 sets, daily range): BP systolic 133–155; BP diastolic 61–82; PULSE 65–98; RESP 18–20; TEMP 98–99; O2SAT 96–100
[2025-05-24] MEDS: HYDROCODONE/APAP 10MG-325MG TAB PO PRN (21:36)
[2025-05-25] VITALS (9 sets, daily range): BP systolic 128–156; BP diastolic 55–70; PULSE 63–80; RESP 18–19; TEMP 97.5–98.9; O2SAT 94–98
[2025-05-25] MEDS ORDERED: HYDROCODONE/APAP 7.5MG-325MG 1 EA TAB PO PRN (09:30)
[2025-05-25] MEDS: HYDROCODONE/APAP 10MG-325MG TAB PO PRN (12:41)
[2025-05-25] MEDS: DOCUSATE SODIUM 100 MG CAP PO SCH (18:28)
[2025-05-26] VITALS (7 sets, daily range): BP systolic 141–159; BP diastolic 55–77; PULSE 61–84; RESP 12–20; TEMP 97.6–98.9; O2SAT 94–98
[2025-05-26] MEDS: CHOLESTYRAMINE 4 GM PACKET PO PRN (16:34)
[2025-05-27] VITALS (10 sets, daily range): BP systolic 138–168; BP diastolic 59–74; PULSE 55–78; RESP 12–18; TEMP 97.6–98.6; O2SAT 95–99
[2025-05-27] MEDS: PANTOPRAZOLE SOD 40 MG TABEC PO SCH (05:04)
[2025-05-28] VITALS (11 sets, daily range): BP systolic 147–158; BP diastolic 62–81; PULSE 62–74; RESP 16–20; TEMP 98.8–99.2; O2SAT 95–99
[2025-05-28 05:37] LABS: BASOPHILS % 0.4 % (0.0-1.0); EOSINOPHILS % 6.5 % (0.0-6.0); LYMPHOCYTES % 21.6 % (18.0-39.1); MONOCYTES % 7.3 % (4.4-11.3); NEUTROPHILS % 63.8 % (38.7-80.0); RED CELL DISTRIBUTION WIDTH 13.9 % (11.7-14.4)
[2025-05-28 06:17] LABS: EST GLOMERULAR FILTRATION RATE 60.0 ML/MIN (>=60)
[2025-05-29 01:20] VITALS: PULSE 69; RESP 18; O2SAT 96
[2025-05-29 06:47] VITALS: BP 149/66; PULSE 63; RESP 16; TEMP 97.9; O2SAT 99
[2025-05-29 07:38] VITALS: PULSE 67; RESP 18; O2SAT 95
[2025-05-29 08:00] VITALS: BP 146/73; PULSE 72; RESP 18; TEMP 98.5; O2SAT 97
[2025-05-29 10:07] VITALS: BP 146/73; PULSE 72; RESP 18; TEMP 98.5; O2SAT 97
[2025-05-29 12:00] VITALS: BP 152/76; PULSE 63; RESP 20; TEMP 98.7; O2SAT 99
== END 2025-05-29 19:03 | DRG 948 ==
LOC: ER 16:32 → ERHOLD 22:51 → MED/SURG 23:45
PROVIDERS: ADMIT Internal Medicine; ATTEND Internal Medicine
DX: R53.1 Weakness (principal); R53.81 Other malaise; D50.9 Iron deficiency anemia, unspecified; E11.9 Type 2 diabetes mellitus without complications; E78.5 Hyperlipidemia, unspecified; F41.9 Anxiety disorder, unspecified; I10 Essential (primary) hypertension; J43.9 Emphysema, unspecified; I48.91 Unspecified atrial fibrillation; R63.0 Anorexia; I25.10 Atherosclerotic heart disease of native coronary artery without angina pectoris; K21.9 Gastro-esophageal reflux disease without esophagitis; R19.7 Diarrhea, unspecified; K59.00 Constipation, unspecified; N31.9 Neuromuscular dysfunction of bladder, unspecified; R26.2 Difficulty in walking, not elsewhere classified; M17.0 Bilateral primary osteoarthritis of knee; S82.891D Other fracture of right lower leg, subsequent encounter for closed fracture with routine healing; Z68.30 Body mass index [BMI] 30.0-30.9, adult; Z79.01 Long term (current) use of anticoagulants; Z79.51 Long term (current) use of inhaled steroids; Z79.02 Long term (current) use of antithrombotics/antiplatelets; Z79.84 Long term (current) use of oral hypoglycemic drugs; Z86.73 Personal history of transient ischemic attack (TIA), and cerebral infarction without residual deficits; Z85.3 Personal history of malignant neoplasm of breast; Z90.12 Acquired absence of left breast and nipple; Z90.710 Acquired absence of both cervix and uterus; Z88.8 Allergy status to other drugs, medicaments and biological substances; Z87.891 Personal history of nicotine dependence
CPT/HCPCS: 36415; 74177; 80048; 80053; 81001; 82948; 83690; 84484; 85025; 93005; 94799; 99285; J2405; J2470; J7030; Q9967